=== PATIENT | male | born 1980 | race Caucasian/White ===

== ENCOUNTER 2017-10-26 18:37 | Emergency (ER) | payer SELFPAY ==
[~2017-10-26] VITALS: Ht 182.9 cm; Wt 75.0 kg
[2017-10-26 18:44] VITALS: BP 125/64; PULSE 74; RESP 16; TEMP 98.4; O2SAT 100
[2017-10-26 19:10] LABS: BILIRUBIN, URINE NEG (NEG); BLOOD, URINE TRACE (NEG); GLUCOSE,URINE NEG (NEG); KETONE, URINE NEG (NEG); NITRITE,URINE NEG (NEG); PH, URINE 7.5 (5.0-8.5); URINE COLOR LIGHT-YELLOW (YELLW/STRAW); URINE LEUKOCYTE ESTERASE NEG (NEG)
[2017-10-26] MEDS ORDERED: AZITHROMYCIN 250 MG TAB PO ONE (22:00)
[2017-10-26] MEDS ORDERED: cefTRIAXone 250 MG VIAL IM ONE (22:00)
[2017-10-26] MEDS ORDERED: LIDOCAINE HCL 1% 50 ML VIAL XX ONE (22:00)
--- NOTE | 2017-10-26 22:02 | PD ---
HPI Chief Complaint: Complaint Time Seen by Provider: 21:45 Travel History International Travel<30 days: No Contact w/Intl Traveler<30days: No Traveled to known affect area: No History of Present Illness HPI This patient speaks Ivorian, although interpretation was via official chief business development officer. 37-year-old male presents for evaluation of dysuria, testicle pain. Symptoms started 3 days ago. He reports a burning sensation when he urinates as well as a pulsating intermittent pain in the left testicle region of his scrotum. He reports recent sexual activity with an unknown female 5 days ago. Denies abdominal pain, nausea or vomiting, diarrhea or constipation, fevers or chills, flank pain, he has no other complaints at this time. [facility] Past Medical History Medical History: Denies Significant Hx Diminished Hearing: No Immunizations Current: Yes Tetanus Vaccination: Unknown Influenza Vaccination: No Past Surgical History Surgical History: No Previous Surgery Social History Alcohol Use: Yes Tobacco Use: Yes Substance Use: No Allergies-Medications (Allergen,Severity, Reaction): Coded Allergies: No Known Allergies (Unverified , 10/26/17) Review of Systems Except as stated in HPI: all other systems reviewed are Neg Physical Exam Narrative GENERAL: Well-developed well-nourished male in no acute distress SKIN: Warm and dry. HEAD: Atraumatic. Normocephalic. EYES: Pupils equal and round. No scleral icterus. No injection or drainage. ENT: No nasal bleeding or discharge. Mucous membranes pink and moist. NECK: Trachea midline. No JVD. CARDIOVASCULAR: Regular rate and rhythm. No murmur appreciated. RESPIRATORY: No accessory muscle use. Clear to auscultation. Breath sounds equal bilaterally. GASTROINTESTINAL: Abdomen soft, non-tender, nondistended. Hepatic and splenic margins not palpable. examination: Normal-appearing scrotum and circumcised penile shaft. No urethral discharge. Mild left testicle tenderness to palpation without any induration or obvious enlargement. There is no inguinal hernia. No inguinal lymphadenopathy. MUSCULOSKELETAL: No obvious deformities. No clubbing. No cyanosis. No edema. NEUROLOGICAL: Awake and alert. No obvious cranial nerve deficits. Motor grossly within normal limits. Normal speech. Data Data Last Documented VS Vital Signs Date Time Temp Pulse Resp B/P (MAP) Pulse Ox O2 Delivery O2 Flow Rate FiO2 10/26/17 18:44 98.4 74 16 125/64 (84) 100 Orders Orders Urinalysis - C+S If Indicated (10/26/17 18:46) Gc And Chlamydia Pcr (10/26/17 18:47) Us Testicles W Doppler (10/26/17 21:59) Azithromycin (Zithromax) (10/26/17 22:00) Ceftriaxone Inj (Rocephin Inj) (10/26/17 22:00) Lidocaine 1% Inj (50 Ml) (Xylocaine 1% I (10/26/17 22:00) Lidocaine Pf 1% Inj (Xylocaine-Mpf 1% In (10/26/17 22:14) Ed Discharge Order (10/26/17 23:20) Labs Laboratory Tests Test 10/26/17 18:45 Urine Color LIGHT-YELLOW Urine Turbidity CLEAR Urine pH 7.5 Urine Specific [place] 1.007 Urine Protein NEG mg/dL Urine Glucose (UA) NEG mg/dL Urine Ketones NEG mg/dL Urine Occult Blood TRACE Urine Nitrite NEG Urine Bilirubin NEG Urine Urobilinogen LESS THAN 2.0 MG/DL Urine Leukocyte Esterase NEG Urine RBC 2 /hpf Microscopic Urinalysis Comment CULT NOT INDICATED MDM Medical Decision Making Medical Screen Exam Complete: Yes Emergency Medical Condition: Yes Medical Record Reviewed: Yes Differential Diagnosis Urethritis, epididymitis, testicular torsion, varicocele, orchitis, inguinal hernia Narrative Course The patient's history is consistent with urethritis, concerning for chlamydia or gonorrhea given recent sexual activity with a new female partner. Empirically the patient will be given azithromycin and Rocephin pending GC results. Scrotal ultrasound has been ordered. Scrotal ultrasound is normal. Patient was given Rocephin and azithromycin pending GC results. Stable for discharge. Diagnosis Primary Impression: Urethritis Referrals: [facility] Dept. Additional Instructions: Go to the health department for further STD testing. Have a partners tested and treated for STDs. Med/Other Pt SpecificInfo: No Change to Meds Disposition: 01 DISCHARGE HOME Condition: Stable Curt Fernandez Oct 26, 2017 22:02
[2017-10-26] MEDS ORDERED: LIDOCAINE HCL 1% PF 30 ML VIAL ONE (22:14)
--- NOTE | 2017-10-26 23:12 | RADRPT ---
EXAM DATE/TIME: 10/26/2017 22:39 [facility] COMPARISON: No previous studies available for comparison. INDICATIONS : Scrotal pain. MEDICAL HISTORY : Scrotal pain. SURGICAL HISTORY : None. ENCOUNTER: Initial ACUITY: 1 day PAIN SCORE: 2/10 LOCATION: Bilateral scrotum. MEASUREMENTS: RIGHT TESTICLE: 4.4 x 3.0 x 1.7cm LEFT TESTICLE: 4.1 x 2.8 x 2.3 cm FINDINGS: RIGHT TESTICLE: Homogeneous echotexture without intra or extratesticular mass. Blood flow is symmetric and within no rmal limits. No hydrocele or varicocele. Epididymis is within normal limits. LEFT TESTICLE: Homogeneous echotexture without intra or extratesticular mass. Blood flow is symmetric and within no rmal limits. No hydrocele or varicocele. Epididymis is within normal limits. SCROTUM: Within normal limits. CONCLUSION: Normal testicular ultrasound. Intact flow to both testicles. Manjeet Gunter MD on October 26, 2017 at 23:10 Board Certified Radiologist. This report was verified electronically.
== END 2017-10-26 23:35 | disposition home or self-care (01) ==
LOC: NEPD 18:37
DX: N34.2 Other urethritis (principal); N50.812 Left testicular pain; Z72.0 Tobacco use
CPT/HCPCS: 76870; 81001; 87491; 87591; 93975; 96372; 99284; J0696

== ENCOUNTER 2017-11-12 15:24 | Emergency (ER) | payer SELFPAY ==
[~2017-11-12] VITALS: Ht 180.3 cm; Wt 75.0 kg
[2017-11-12 15:54] VITALS: BP 136/69; PULSE 73; RESP 18; TEMP 97.8; O2SAT 100
[2017-11-12 16:52] LABS: AUTOMATED NEUTROPHIL # 4.1 TH/MM3 (1.8-7.7); BASOPHIL # 0.1 TH/MM3 (0-0.2); BASOPHIL % 1.2 % (0.0-2.0); EOSINOPHIL # 0.1 TH/MM3 (0-0.4); HEMATOCRIT 43.7 % (39.0-51.0); HEMOGLOBIN 14.8 GM/DL (13.0-17.0); MEAN CELL VOLUME 89.5 FL (80.0-100.0); MEAN CORPUSCULAR HEMOGLOBIN 30.3 PG (27.0-34.0); MEAN CORPUSCULAR HGB CONC 33.8 % (32.0-36.0); MEAN PLATELET VOLUME 8.9 FL (7.0-11.0); MONO % 6.3 % (0.0-8.0); MONOCYTE # 0.4 TH/MM3 (0-0.9); NEUT % 61.5 % (16.0-70.0); PLATELET COUNT 254 TH/MM3 (150-450); RED BLOOD COUNT 4.88 MIL/MM3 (4.50-5.90); RED CELL DISTRIBUTION WIDTH 13.5 % (11.6-17.2); WHITE BLOOD COUNT 6.6 TH/MM3 (4.0-11.0)
[2017-11-12 16:55] LABS: BILIRUBIN, URINE NEG (NEG); BLOOD, URINE TRACE (NEG); GLUCOSE,URINE NEG (NEG); KETONE, URINE NEG (NEG); NITRITE,URINE NEG (NEG); PH, URINE 6.5 (5.0-8.5); SQUAMOUS EPITHELIAL CELL URINE <1 /hpf (0-5); URINE COLOR COLORLESS (YELLW/STRAW); URINE LEUKOCYTE ESTERASE NEG (NEG)
[2017-11-12 17:27] LABS: BICARBONATE 27.5 MEQ/L (21.0-32.0); CALCIUM 8.8 MG/DL (8.5-10.1); CREATININE 0.9 MG/DL (0.60-1.30)
--- NOTE | 2017-11-12 19:17 | PD ---
HPI Chief Complaint: Complaint Time Seen by Provider: 19:15 Travel History International Travel<30 days: No Contact w/Intl Traveler<30days: No Traveled to known affect area: No History of Present Illness HPI 37-year-old male complains of dysuria for the past day. He reports unprotected sexual intercourse with a new partner. He reports he was seen here about 2 weeks ago for the same complaint and received medications, Rocephin azithromycin , with resolution of symptoms. No nausea vomiting fever chills abdominal pain. No hematuria. Severity is mild to moderate. Patient unable to identify modifying factor. [facility] Past Medical History Diminished Hearing: No Immunizations Current: Yes Social History Alcohol Use: Yes Tobacco Use: Yes Substance Use: No Allergies-Medications (Allergen,Severity, Reaction): Coded Allergies: No Known Allergies (Unverified , 11/12/17) Reported Meds & Prescriptions Reported Meds & Active Scripts Active No Active Prescriptions or Reported Medications Review of Systems Except as stated in HPI: all other systems reviewed are Neg General / Constitutional: No: Fever Physical Exam Narrative GENERAL: 37-year-old male pleasant well-nourished well-developed no acute distress, as patient speaks Danish however peak some Malay and prefers to communicate without translation services provided online Vital Signs Date Time Temp Pulse Resp B/P (MAP) Pulse Ox O2 Delivery O2 Flow Rate FiO2 11/12/17 15:54 97.8 73 18 136/69 (91) 100 GENITOURINARY: There is no abnormality on testicles or penis. SKIN: Warm and dry. HEAD: Atraumatic. Normocephalic. EYES: Pupils equal and round. No scleral icterus. No injection or drainage. ENT: No nasal bleeding or discharge. Mucous membranes pink and moist. NECK: Trachea midline. No JVD. CARDIOVASCULAR: Regular rate and rhythm. RESPIRATORY: No accessory muscle use. Clear to auscultation. Breath sounds equal bilaterally. GASTROINTESTINAL: Abdomen soft, non-tender, nondistended. Hepatic and splenic margins not palpable. MUSCULOSKELETAL: Extremities without clubbing, cyanosis, or edema. No obvious deformities. NEUROLOGICAL: Awake and alert. No obvious cranial nerve deficits. Motor grossly within normal limits. Five out of 5 muscle strength in the arms and legs. Normal speech. Data Data Last Documented VS Vital Signs Date Time Temp Pulse Resp B/P (MAP) Pulse Ox O2 Delivery O2 Flow Rate FiO2 11/12/17 15:54 97.8 73 18 136/69 (91) 100 Orders Orders Complete Blood Count With Diff (11/12/17 15:57) Basic Metabolic Panel (Bmp) (11/12/17 15:57) Urinalysis - C+S If Indicated (11/12/17 15:57) Gc And Chlamydia Pcr (11/12/17 15:57) Azithromycin Powd Pack (Zithromax Powd P (11/12/17 19:45) Ceftriaxone Inj (Rocephin Inj) (11/12/17 19:45) Ed Discharge Order (11/12/17 20:04) Lidocaine 1% Inj (Xylocaine 1% Inj) (11/12/17 21:00) Labs Laboratory Tests Test 11/12/17 16:05 White Blood Count 6.6 TH/MM3 Red Blood Count 4.88 MIL/MM3 Hemoglobin 14.8 GM/DL Hematocrit 43.7 % Mean Corpuscular Volume 89.5 FL Mean Corpuscular Hemoglobin 30.3 PG Mean Corpuscular Hemoglobin Concent 33.8 % Red Cell Distribution Width 13.5 % Platelet Count 254 TH/MM3 Mean Platelet Volume 8.9 FL Neutrophils (%) (Auto) 61.5 % Lymphocytes (%) (Auto) 30.0 % Monocytes (%) (Auto) 6.3 % Eosinophils (%) (Auto) 1.0 % Basophils (%) (Auto) 1.2 % Neutrophils # (Auto) 4.1 TH/MM3 Lymphocytes # (Auto) 2.0 TH/MM3 Monocytes # (Auto) 0.4 TH/MM3 Eosinophils # (Auto) 0.1 TH/MM3 Basophils # (Auto) 0.1 TH/MM3 CBC Comment DIFF FINAL Differential Comment Urine Color COLORLESS Urine Turbidity CLEAR Urine pH 6.5 Urine Specific [place] 1.004 Urine Protein NEG mg/dL Urine Glucose (UA) NEG mg/dL Urine Ketones NEG mg/dL Urine Occult Blood TRACE Urine Nitrite NEG Urine Bilirubin NEG Urine Urobilinogen LESS THAN 2.0 MG/DL Urine Leukocyte Esterase NEG Urine WBC LESS THAN 1 /hpf Urine Squamous Epithelial Cells <1 /hpf Microscopic Urinalysis Comment CULT NOT INDICATED Blood Urea Nitrogen 11 MG/DL Creatinine 0.90 MG/DL Random Glucose 93 MG/DL Calcium Level 8.8 MG/DL Sodium Level 141 MEQ/L Potassium Level 3.6 MEQ/L Chloride Level 106 MEQ/L Carbon Dioxide Level 27.5 MEQ/L Anion Gap 8 MEQ/L Estimat Glomerular Filtration Rate 94 ML/MIN Chlamydia trachomatis DNA (PCR) NOT DETECTED Neisseria gonorrhoeae DNA (PCR) NOT DETECTED MDM Medical Decision Making Medical Screen Exam Complete: Yes Emergency Medical Condition: Yes Medical Record Reviewed: Yes Differential Diagnosis UTI, hematuria, tonsillitis, STD Narrative Course UA shows no UTI Rocephin azithromycin given as empiric coverage for possible GC Chlamydia Diagnosis Primary Impression: Dysuria Referrals: [facility] Dept. call for appointment Med/Other Pt SpecificInfo: No Change to Meds Scripts No Active Prescriptions or Reported Meds Disposition: DISCHARGE HOME Condition: Stable Prashanth Davila MD Nov 12, 2017 19:17
[2017-11-12] MEDS ORDERED: LIDOCAINE HCL 1% 50 ML VIAL IM ONE (19:45)
[2017-11-12] MEDS ORDERED: cefTRIAXone 250 MG VIAL IM ONE (19:45)
[2017-11-12] MEDS ORDERED: AZITHROMYCIN PWD FOR SUSP 1 GM PACKET PO ONE (19:45)
[2017-11-12] MEDS ORDERED: LIDOCAINE HCL 1% 20 ML VIAL OTHER ONE (21:00)
== END 2017-11-12 21:48 | disposition home or self-care (01) ==
LOC: NEPD 15:24
DX: R30.0 Dysuria (principal); Z72.0 Tobacco use
CPT/HCPCS: 80048; 81001; 85025; 87491; 87591; 96372; 99284; J0696

== ENCOUNTER 2018-01-01 01:41 | Observation (INO) | payer SELFPAY ==
[2018-01-01] VITALS (8 sets, daily range): BP systolic 112–129; BP diastolic 65–89; PULSE 66–78; RESP 16–20; TEMP 97.8–98.4; O2SAT 97–100
[2018-01-01] MEDS ORDERED: ASPIRIN 81 MG CHEW TAB PO ONE (02:15)
[2018-01-01] MEDS ORDERED: SODIUM CHLORIDE 0.9% FLUSH 10 ML FLUSH IVF PRN (02:15)
--- NOTE | 2018-01-01 02:23 | PD ---
HPI Chief Complaint: Chest Pain Time Seen by Provider: 02:07 Travel History International Travel<30 days: No Contact w/Intl Traveler<30days: No Traveled to known affect area: No History of Present Illness HPI 37-year-old male presents to the emergency department for 8/10 chest pain and epigastric pains since yesterday. Patient has had these symptoms before after drinking alcohol on empty stomach. Patient admits to drinking heavily over the weekend because of celebrating the holidays. Patient does have history of alcohol use approximately once a week and does smoke 7 cigarettes daily for the past 15 years. Patient denies personal history of heart disease hypertension dyslipidemia diabetes or family history of heart disease or clotting disorder. Patient's had no lower extremity pain or swelling. Patient does note some discomfort with taking a deep breath. Patient does not report any shortness of breath or hemoptysis. No reported fever. Patient is unable to identify exacerbating or alleviating factors other than drinking alcohol and does precipitate episodes of gastritis and has had this before. No history of pancreatitis. No fever chills. Patient denies any referred neck jaw back shoulder arm pain. [facility] Past Medical History Narrative Medical Gastritis, alcohol use, tobacco use, nursing notes reviewed Medical History: Denies Significant Hx Diminished Hearing: No Immunizations Current: Yes Social History Alcohol Use: Yes Tobacco Use: Yes Substance Use: No Allergies-Medications (Allergen,Severity, Reaction): Uncoded Allergies: metamizol (Allergy, Severe, 01/01/18) Reported Meds & Prescriptions Reported Meds & Active Scripts Active No Active Prescriptions or Reported Medications Review of Systems Except as stated in HPI: all other systems reviewed are Neg General / Constitutional: No: Fever, Chills HENT: No: Congestion Cardiovascular: Positive: Chest Pain or Discomfort, No: Diaphoresis, Syncope, Dyspnea on exertion, Varicosities, Edema Respiratory: Positive: Pleuritic Pain, No: Cough, Shortness of Breath, Wheezing , Hemoptysis Gastrointestinal: Positive: Abdominal Pain (Epigastric pain), No: Nausea, Vomiting Genitourinary: No: Decreased Urinary Output, Flank Pain Musculoskeletal: No: Edema, Pain Skin: No Rash Neurologic: No: Weakness, Dizziness Psychiatric: No: Anxiety Hematologic/Lymphatic: No: Lymph Node Enlargement Physical Exam Narrative GENERAL: Well-developed well-nourished male no acute distress no respiratory distress; vital signs within normal SKIN: Warm and dry. HEAD: Normocephalic. EYES: No scleral icterus. No injection or drainage. NECK: Supple, trachea midline. No JVD or lymphadenopathy. CARDIOVASCULAR: Regular rate and rhythm without murmurs, gallops, or rubs. Chest wall: Tender to palpation RESPIRATORY: Breath sounds equal bilaterally. No accessory muscle use. GASTROINTESTINAL: Abdomen soft, epigastric tenderness reproduces epigastric pain and alleviates chest pain, nondistended. No guarding or rebound. No palpable pulsatile mass. MUSCULOSKELETAL: No cyanosis, or edema. Bilateral radial pulses 2+ to palpation bilateral dorsalis pedis pulses 2+ to palpation BACK: Nontender without obvious deformity. No CVA tenderness. Data Data Last Documented VS Vital Signs Date Time Temp Pulse Resp B/P (MAP) Pulse Ox O2 Delivery O2 Flow Rate FiO2 01/01/18 04:41 70 18 119/89 (99) 99 01/01/18 02:12 Room Air 01/01/18 01:47 97.8 Orders Orders Electrocardiogram (01/01/18 02:10) Ckmb (Isoenzyme) Profile (01/01/18 02:10) Complete Blood Count With Diff (01/01/18 02:10) Comprehensive Metabolic Panel (01/01/18 02:10) D-Dimer (01/01/18 02:10) Magnesium (Mg) (01/01/18 02:10) Prothrombin Time / Inr (Pt) (01/01/18 02:10) Act Partial Throm Time (Ptt) (01/01/18 02:10) Troponin I (01/01/18 02:10) Lipase (01/01/18 02:10) Ecg Monitoring (01/01/18 02:10) Bilateral Bp Monitoring (01/01/18 02:10) Iv Access Insert/Monitor (01/01/18 02:10) Oximetry (01/01/18 02:10) Oxygen Administration (01/01/18 02:10) Aspirin Chew (Aspirin Chew) (01/01/18 02:15) Sodium Chloride 0.9% Flush (Ns Flush) (01/01/18 02:15) Westergren Sedimentation Rate (01/01/18 02:10) Chest, Single Ap (01/01/18 ) Pantoprazole Inj (Protonix Inj) (01/01/18 02:30) Nitroglycerin Sl (Nitrostat Sl) (01/01/18 04:45) Sodium Chlorid 0.9% 500 Ml Inj (Ns 500 M (01/01/18 04:45) Admit Order (Ed Use Only) (01/01/18 ) Choreography Director / Telemetry MELISSA.[email or web address] (01/01/18 04:55) Diet Heart Healthy (01/01/18 Breakfast) Activity Oob With Assistance (01/01/18 04:55) Notify Dr: Other (01/01/18 04:55) Activity Bed Rest With Brp (01/01/18 04:55) Vital Signs (Adult) Q4H (01/01/18 04:55) Cardiac Rhythm .As Directed (01/01/18 04:55) Notify Dr: Other .PRN (01/01/18 04:55) Notify Parameters (01/01/18 04:55) Resp Oxygen Nasal Cannula (01/01/18 ) Ckmb (Isoenzyme) Profile (01/01/18 04:55) Troponin I (01/01/18 04:55) Electrocardiogram (01/01/18 04:55) Electrocardiogram (01/01/18 07:55) ^ Obtain (01/01/18 04:55) Sodium Chloride 0.9% Flush (Ns Flush) (01/01/18 05:00) Sodium Chloride 0.9% Flush (Ns Flush) (01/01/18 09:00) Nitroglycerin Sl (Nitrostat Sl) (01/01/18 05:00) Choreography Director / Telemetry MELISSA.Q8H (01/01/18 04:55) Labs Laboratory Tests Test 01/01/18 01:35 White Blood Count 6.6 TH/MM3 Red Blood Count 5.57 MIL/MM3 Hemoglobin 16.4 GM/DL Hematocrit 48.7 % Mean Corpuscular Volume 87.3 FL Mean Corpuscular Hemoglobin 29.4 PG Mean Corpuscular Hemoglobin Concent 33.6 % Red Cell Distribution Width 12.8 % Platelet Count 252 TH/MM3 Mean Platelet Volume 8.9 FL Neutrophils (%) (Auto) 54.1 % Lymphocytes (%) (Auto) 31.8 % Monocytes (%) (Auto) 10.3 % Eosinophils (%) (Auto) 3.0 % Basophils (%) (Auto) 0.8 % Neutrophils # (Auto) 3.6 TH/MM3 Lymphocytes # (Auto) 2.1 TH/MM3 Monocytes # (Auto) 0.7 TH/MM3 Eosinophils # (Auto) 0.2 TH/MM3 Basophils # (Auto) 0.1 TH/MM3 CBC Comment DIFF FINAL Differential Comment Erythrocyte Sedimentation Rate 1 mm/hr Prothrombin Time 9.9 SEC Prothromb Time International Ratio 1.0 RATIO Activated Partial Thromboplast Time 23.1 SEC D-Dimer Quantitative (PE/DVT) LESS THAN 0.19 MG/L FEU Blood Urea Nitrogen 18 MG/DL Creatinine 0.99 MG/DL Random Glucose 96 MG/DL Total Protein 7.2 GM/DL Albumin 3.7 GM/DL Calcium Level 8.5 MG/DL Magnesium Level 2.2 MG/DL Alkaline Phosphatase 75 U/L Aspartate Amino Transf (AST/SGOT) 14 U/L Alanine Aminotransferase (ALT/SGPT) 18 U/L Total Bilirubin 0.8 MG/DL Sodium Level 144 MEQ/L Potassium Level 3.7 MEQ/L Chloride Level 107 MEQ/L Carbon Dioxide Level 29.3 MEQ/L Anion Gap 8 MEQ/L Estimat Glomerular Filtration Rate 85 ML/MIN Total Creatine Kinase 63 U/L Troponin I LESS THAN 0.02 NG/ML Lipase 319 U/L MDM Medical Decision Making Medical Screen Exam Complete: Yes Emergency Medical Condition: Yes Medical Record Reviewed: Yes Interpretation(s) EKG normal sinus rhythm rate [address] elevation without reciprocal ischemic changes normally inflicted T-wave suspect early repolarization Troponin I: Less than 0.02, not elevated CK total: 63, not elevated Sed rate: 1, not elevated D-dimer: 0.19, elevated Chest x-ray no lobar infiltrate or acute process CBC is automated differential grossly within normal limits Metabolic panel grossly within normal limits Differential Diagnosis Chest pain, atypical chest pain, ACS, TX, pericarditis, musculoskeletal pain, PE , esophagitis, cholecystitis, pancreatitis, pneumothorax Narrative Course Patient is Thai-speaking; status not available; staff member available to translate Thai to Spanish. Patient placed on electronic device monitor with continuous pulse oximetry IV access obtained specimens collected and sent for resulting EKG shows early repolarization ST elevation changes Patient placed on electronic device monitor with continuous pulse oximetry specimens collected and sent for resulting; staff member for translation, Samm. 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
[2018-01-01] MEDS ORDERED: PANTOPRAZOLE SODIUM 40 MG VIAL IV PUSH ONE (02:30)
[2018-01-01 02:39] LABS: AUTOMATED NEUTROPHIL # 3.6 TH/MM3 (1.8-7.7); BASOPHIL # 0.1 TH/MM3 (0-0.2); BASOPHIL % 0.8 % (0.0-2.0); EOSINOPHIL # 0.2 TH/MM3 (0-0.4); HEMATOCRIT 48.7 % (39.0-51.0); HEMOGLOBIN 16.4 GM/DL (13.0-17.0); LYMPH % 31.8 % (9.0-44.0); LYMPHOCYTE # 2.1 TH/MM3 (1.0-4.8); MEAN CELL VOLUME 87.3 FL (80.0-100.0); MEAN CORPUSCULAR HEMOGLOBIN 29.4 PG (27.0-34.0); MEAN CORPUSCULAR HGB CONC 33.6 % (32.0-36.0); MEAN PLATELET VOLUME 8.9 FL (7.0-11.0); MONO % 10.3 % (0.0-8.0); MONOCYTE # 0.7 TH/MM3 (0-0.9); NEUT % 54.1 % (16.0-70.0); PLATELET COUNT 252 TH/MM3 (150-450); RED BLOOD COUNT 5.57 MIL/MM3 (4.50-5.90); RED CELL DISTRIBUTION WIDTH 12.8 % (11.6-17.2); WHITE BLOOD COUNT 6.6 TH/MM3 (4.0-11.0)
--- NOTE | 2018-01-01 02:51 | RADRPT ---
EXAM DATE/TIME: 01/01/2018 02:42 [facility] COMPARISON: No previous studies available for comparison. INDICATIONS : Chest pain. MEDICAL HISTORY : None. SURGICAL HISTORY : None. ENCOUNTER: Initial ACUITY: 1 day PAIN SCORE: 4/10 LOCATION: Bilateral chest FINDINGS: A single view of the chest demonstrates the lungs to be symmetrically aerated without evidence of mas s, infiltrate or effusion. The cardiomediastinal contours are unremarkable. Osseous structures are intact. CONCLUSION: No acute disease. Pieter Houser MD on January 01, 2018 at 2:49 Board Certified Radiologist. This report was verified electronically.
[2018-01-01 02:57] LABS: ALBUMIN 3.7 GM/DL (3.4-5.0); ALT (GPT) 18 U/L (12-78); AST (GOT) 14 U/L (15-37); BICARBONATE 29.3 MEQ/L (21.0-32.0); BLOOD UREA NITROGEN 18 MG/DL (7-18); CALCIUM 8.5 MG/DL (8.5-10.1); CHLORIDE 107 MEQ/L (98-107); CREATININE 0.99 MG/DL (0.60-1.30); GLOMERULAR FILTRATION RATE 85 ML/MIN (>89); GLUCOSE,RANDOM 96 MG/DL (74-106); MAGNESIUM 2.2 MG/DL (1.5-2.5); SODIUM (NA) 144 MEQ/L (136-145)
[2018-01-01 03:01] LABS: ALKALINE PHOSPHATASE 75 U/L (45-117); TOTAL BILIRUBIN ADULT 0.8 MG/DL (0.2-1.0); TOTAL PROTEIN 7.2 GM/DL (6.4-8.2); TROPONIN I LESS THAN 0.02 NG/ML (0.02-0.05)
[2018-01-01 03:32] LABS: D-DIMER LESS THAN 0.19 MG/L FEU (0.00-0.50); PROTHROMBIN TIME - PATIENT 9.9 SEC (9.8-11.6)
[2018-01-01] MEDS ORDERED: NITROGLYCERIN 0.4 MG SL 25 TABS/BTL SL ONE (04:45)
[2018-01-01] MEDS ORDERED: SODIUM CHLORID 0.9% 500 ML INJ 500 ML IV ONE (04:45)
[2018-01-01] MEDS ORDERED: SUCRALFATE 1 GM/10 ML CUP PO ONE (04:45)
[2018-01-01] MEDS ORDERED: NITROGLYCERIN 0.4 MG SL 25 TABS/BTL SL PRN (05:00)
[2018-01-01] MEDS ORDERED: SODIUM CHLORIDE 0.9% FLUSH 10 ML FLUSH IV FLUSH PRN (05:00)
[2018-01-01] MEDS ORDERED: SUCRALFATE 1 GM TAB PO ONE (05:15)
[2018-01-01 07:42] LABS: TROPONIN I LESS THAN 0.02 NG/ML (0.02-0.05)
--- NOTE | 2018-01-01 08:46 | EKG ---
Date Performed: 01/01/2018 Time Performed: 06:09:14 PTAGE: 37 years EKG: Sinus rhythm ST ELEVATION, PROBABLY EARLY REPOLARIZATION BORDERLINE ECG Since PREVIOUS TRACING , no significant change noted PREVIOUS TRACIN01/01/2018 02.04 DOCTOR: Lissy Newton Interpretating Date/Time 01/01/2018 08:45:19
--- NOTE | 2018-01-01 08:46 | EKG ---
Date Performed: 01/01/2018 Time Performed: 02:04:39 PTAGE: 37 years EKG: Sinus rhythm ST ELEVATION, PROBABLY EARLY REPOLARIZATION BORDERLINE ECG NO PREVIOUS TRACING DOCTOR: Lissy Newton Interpretating Date/Time 01/01/2018 08:44:28
[2018-01-01] MEDS ORDERED: SODIUM CHLORIDE 0.9% FLUSH 10 ML FLUSH IV FLUSH SCH (09:00)
--- NOTE | 2018-01-01 11:16 | HHI.HP ---
HPI Primary Care Physician No Primary Care Physician Chief Complaint Chest pain History of Present Illness 37-year-old Faroese-speaking male the presents to ED via private vehicle with a complaint of chest discomfort. He points to epigastric region when saying he has chest pain. Began yesterday. States began after drinking alcohol. States he has has had only alcohol for the last 2 days. States had nothing to eat or drink other than alcohol. States is similar to the gastritis that he has had in the past. He took ranitidine at home which did seem to help. He also took some naproxen which did not seem to help. Denies shortness of breath, nausea, diaphoresis. Denies blood in stool. Denies emesis. Denies history of CAD but cannot recall ever having a stress test. Denies recent illness. Denies fevers or chills. Review of Systems General: Patient denies fevers, chills, and recent travel. HEENT: Patient denies headache, sore throat, difficulty swallowing. Cardiovascular: Has the chest discomfort as mentioned above and points to epigastric region indicate where the discomfort is located. Denies sensation of heart beating rapidly or irregularly. No syncope. Denies diaphoresis. Respiratory: Denies shortness of breath or inspirational chest discomfort. Denies coughing wheezing or hemoptysis. GI: Points to epigastric region indicate where discomfort is present. Patient denies nausea, vomiting, diarrhea, bloody stools. Musculoskeletal: Patient denies joint pain or edema. Denies calf pain or edema. Neurovascular: Patient denies numbness, tingling, weakness in extremities. Denies headache. Endocrine: Denies polyuria and polydipsia. Hematologic: Denies easy bruising. Skin: Denies rash or itching. Past Family Social History Allergies: Uncoded Allergies: metamizol (Allergy, Severe, 01/01/18) Past Medical History Tobacco abuse. Gastritis. Denies hypertension, hyperlipidemia, diabetes, and CAD. Past Surgical History Denies prior surgeries. Reported Medications Reported Meds & Active Scripts Active No Active Prescriptions or Reported Medications Active Ordered Medications Current Medications Medications (Trade) Dose Ordered Sig/Zen Route Start Time Stop Time Status Last Admin (NS Flush) 2 ml UNSCH PRN IV FLUSH 01/01/18 05:00 (NS Flush) 2 ml BID IV FLUSH 01/01/18 09:00 01/01/18 09:28 (Nitrostat Sl) 0.4 mg Q5M PRN SL 01/01/18 05:00 Family History Denies family history of CAD. Social History Smokes 7 cigarettes per day for 15 years. Has occasional alcohol but states he drank more than usual over the last 2 days but cannot elaborate specifically on how much alcohol that he has had. Denies illicit drug use. 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 Physical Exam Vital Signs Vital Signs Date Time Temp Pulse Resp B/P (MAP) Pulse Ox O2 Delivery O2 Flow Rate FiO2 01/01/18 08:27 78 01/01/18 08:00 98.4 74 20 112/65 (81) 99 01/01/18 06:25 98.4 72 16 125/66 (85) 99 01/01/18 06:04 70 18 116/70 (85) 99 01/01/18 04:59 21 01/01/18 04:41 70 18 119/89 (99) 99 01/01/18 03:44 66 18 119/70 (86) 100 01/01/18 02:12 71 18 125/77 (93) 97 Room Air 01/01/18 01:47 97.8 77 18 129/80 (96) 100 Physical Exam GENERAL: This is a well-nourished, well-developed patient, in no apparent distress. Patient speaks in clear complete sentences. Patient is pleasant. HEENT: Head is atraumatic and normocephalic. Neck is supple without lymphadenopathy and trachea is midline. No JVD or carotid bruits. CARDIOVASCULAR: Regular rate and rhythm without murmurs, gallops, or rubs. RESPIRATORY: Clear to auscultation. Breath sounds equal bilaterally. No wheezes , rales, or rhonchi. Chest wall is nontender. No use of accessory muscles. GASTROINTESTINAL: Abdomen is nontender, nondistended. Abdomen soft. No obvious pulsatile mass or bruit. No CVA tenderness. Strong femoral pulses bilaterally. Normal bowel sounds in all quadrants. MUSCULOSKELETAL: Patient is moving upper and lower extremities freely. No calf tenderness or edema, no Homans sign. Strong pulses in upper and lower extremities. NEUROLOGICAL: Patient is alert and oriented. Cranial nerves 2-12 are grossly intact. No focal deficits and speech is clear. SKIN: No rash and turgor is normal. Laboratory Laboratory Tests Test 01/01/18 01:35 01/01/18 06:00 White Blood Count 6.6 Red Blood Count 5.57 Hemoglobin 16.4 Hematocrit 48.7 Mean Corpuscular Volume 87.3 Mean Corpuscular Hemoglobin 29.4 Mean Corpuscular Hemoglobin Concent 33.6 Red Cell Distribution Width 12.8 Platelet Count 252 Mean Platelet Volume 8.9 Neutrophils (%) (Auto) 54.1 Lymphocytes (%) (Auto) 31.8 Monocytes (%) (Auto) 10.3 Eosinophils (%) (Auto) 3.0 Basophils (%) (Auto) 0.8 Neutrophils # (Auto) 3.6 Lymphocytes # (Auto) 2.1 Monocytes # (Auto) 0.7 Eosinophils # (Auto) 0.2 Basophils # (Auto) 0.1 CBC Comment DIFF FINAL Differential Comment Erythrocyte Sedimentation Rate 1 Prothrombin Time 9.9 Prothromb Time International Ratio 1.0 Activated Partial Thromboplast Time 23.1 D-Dimer Quantitative (PE/DVT) LESS THAN 0.19 Blood Urea Nitrogen 18 Creatinine 0.99 Random Glucose 96 Total Protein 7.2 Albumin 3.7 Calcium Level 8.5 Magnesium Level 2.2 Alkaline Phosphatase 75 Aspartate Amino Transf (AST/SGOT) 14 Alanine Aminotransferase (ALT/SGPT) 18 Total Bilirubin 0.8 Sodium Level 144 Potassium Level 3.7 Chloride Level 107 Carbon Dioxide Level 29.3 Anion Gap 8 Estimat Glomerular Filtration Rate 85 Total Creatine Kinase 63 56 Troponin I LESS THAN 0.02 LESS THAN 0.02 Lipase 319 Result Diagram: 01/01/18 0135 01/01/18 0135 Imaging Last 48 hours Impressions Chest X-Ray 01/01/18 0000 Signed Impressions: Service Date/Time: Monday, January 01, 2018 02:42 - CONCLUSION: No acute disease. Pieter Houser MD Course EKGs are sinus rhythm without significant ST segment depressions. Pattern of early repolarization is present. Caprini VTE Risk Assessment Caprini VTE Risk Assessment: No/Low Risk (score <= 1) Caprini Risk Assessment Model Point Value = 1 Point Value = 2 Point Value = 3 Point Value = 5 Age 41-60 Minor surgery BMI > 25 kg/m2 Swollen legs Varicose veins or History of unexplained or recurrent spontaneous Oral contraceptives or hormone replacement Sepsis (< 1 month) Serious lung disease, including pneumonia (< 1 month) Abnormal pulmonary function Acute myocardial infarction Congestive heart failure (< 1 month) History of inflammatory bowel disease Medical patient at bed rest Age 61-74 Arthroscopic surgery Major open surgery (> 45 min) Laparoscopic surgery (> 45 min) Malignancy Confined to bed (> 72 hours) Immobilizing plaster cast Central venous access Age >= 75 History of VTE Family history of VTE Factor V Leiden Prothrombin [id number] Lupus anticoagulant Anticardiolipin antibodies Elevated serum homocysteine Heparin-induced thrombocytopenia Other congenital or acquired thrombophilia Stroke (< 1 month) Elective arthroplasty Hip, pelvis, or leg fracture Acute spinal cord injury (< 1 month) Prophylaxis Regimen Total Risk Factor Score Risk Level Prophylaxis Regimen 0-1 Low Early ambulation 2 Moderate Order ONE of the following: *Sequential Compression Device (SCD) *Heparin 5000 units SQ BID 3-4 Higher Order ONE of the following medications: *Heparin 5000 units SQ TID *Enoxaparin/Lovenox 40 mg SQ daily (WT < 150 kg, CrCl > 30 mL/min) *Enoxaparin/Lovenox 30 mg SQ daily (WT < 150 kg, CrCl > 10-29 mL/min) *Enoxaparin/Lovenox 30 mg SQ BID (WT < 150 kg, CrCl > 30 mL/min) AND/OR *Sequential Compression Device (SCD) 5 or more Highest Order ONE of the following medications: *Heparin 5000 units SQ TID (Preferred with Epidurals) *Enoxaparin/Lovenox 40 mg SQ daily (WT < 150 kg, CrCl > 30 mL/min) *Enoxaparin/Lovenox 30 mg SQ daily (WT < 150 kg, CrCl > 10-29 mL/min) *Enoxaparin/Lovenox 30 mg SQ BID (WT < 150 kg, CrCl > 30 mL/min) AND *Sequential Compression Device (SCD) Assessment and Plan Assessment and Plan * Atypical chest pain: Patient discomfort appears more GI related. He has had serial cardiac enzymes and EKGs for ruling out purposes. He was seen by Dr. Newton of cardiology in the chest pain center. He will have a Igor protocol ETT and if nonischemic will be discharged home with instructions to follow-up with PCP. He should no longer use naproxen. He can continue ranitidine. Avoid alcohol and tobacco products. Follow up PCP. Return to ED for interval issues. * Tobacco abuse: Patient has been counseled importance of smoking cessation. Patient is stable at this time. He is agreeable to this plan. Martín Davidson January 01, 2018 11:16
--- NOTE | 2018-01-01 12:10 | HHI.DCPOC ---
Discharge Care Plan Goals to Promote Your Health DO NOT USE NAPROXEN. * To prevent worsening of your condition and complications * To maintain your health at the optimal level Directions to Meet Your Goals Take your medications as prescribed Follow your dietary instruction Follow activity as directed Keep your appointments as scheduled Take your immunizations and boosters as scheduled If your symptoms worsen call your PCP, if no PCP go to Urgent Care Center or Emergency Room Smoking is Dangerous to Your Health. Avoid second hand smoke Call the 24-hour hour crisis hotline for domestic abuse at Martín Davidson January 01, 2018 12:10
--- NOTE | 2018-01-01 16:52 | EKG ---
Date Performed: 01/01/2018 Time Performed: 07:51:57 PTAGE: 37 years EKG: Sinus rhythm ST ELEVATION, PROBABLY EARLY REPOLARIZATION BORDERLINE ECG Since PREVIOUS TRACING , no significant change noted PREVIOUS TRACIN01/01/2018 06.09 DOCTOR: Lissy Newton Interpretating Date/Time 01/01/2018 16:52:01
--- NOTE | 2018-01-01 16:57 | TR ---
Date Performed: 01/01/2018 Time Performed: 10:36:23 DOCTOR: Lissy Newton DRUG LIST: CLINICAL HISTORY: REASON FOR TEST: REASON FOR ENDING: OBSERVATION: CONCLUSION: MARJORIE PROTOCOL. NO CP. TEST STOPPED AFTER EXCEEDING GOAL HR SECONDARY TO SOB AND LEG FATIGUE.Maximum IY=348 % Max HR Achieved=86.0% Maximum GL=126/78 Total Exercise Time=12:00 COMMENTS: No ischemia
== END 2018-01-01 13:26 | disposition home or self-care (01) ==
LOC: NEPC 01:41 → NEDA 04:57 → NEPGCP 06:21
PROVIDERS: ADMIT Internal Medicine Cardiovascular Disease; ATTEND Internal Medicine Cardiovascular Disease
DX: R07.89 Other chest pain (principal); F17.200 Nicotine dependence, unspecified, uncomplicated
CPT/HCPCS: 71045; 80053; 82550; 83690; 83735; 84484; 85025; 85379; 85610; 85652; 85730; 93005; 93017; 96374; 99285; C9113; G0378; J7040